=== PATIENT | female | born 1980 | race Two or more races ===

== ENCOUNTER 2020-02-20 10:26 | Day surgery (SDC) | payer OTHER | END 2020-02-21 01:45 | disposition home or self-care (01) | LOC: CIR.AMB 10:26 | PROVIDERS: ATTEND Obstetrics & Gynecology | DX: O02.1 Missed abortion (principal); Z20.828 Contact with and (suspected) exposure to other viral communicable diseases ==

== ENCOUNTER 2021-02-04 06:33 | Day surgery (SDC) | payer OTHER | END 2021-02-04 10:40 | disposition home or self-care (01) | LOC: AMB-ENDOS 06:33 | PROVIDERS: ATTEND Colon & Rectal Surgery | DX: K62.5 Hemorrhage of anus and rectum (principal); K64.8 Other hemorrhoids; Z12.11 Encounter for screening for malignant neoplasm of colon ==

== ENCOUNTER → 2024-10-26 | Day surgery (SDC) | payer OTHER ==
[~2024-10-26] MED LIST: DIPHENHYDRAMINE HCL 50 MG/ML VIAL 1ML IV ONE; MIDAZOLAM HCL 2 MG/2 ML VIAL IV ONE; ONDANSETRON HCL 2 MG/ML VIAL IV ONE; fentaNYL CITRATE 50 MCG/ML AMPUL IV PUSH ONE
== END | disposition home or self-care (01) ==
LOC: ADM 10-22 13:00 → AMB-ENDOS 05:46
PROVIDERS: ATTEND Colon & Rectal Surgery
DX: D12.2 Benign neoplasm of ascending colon (principal); K63.5 Polyp of colon